=== PATIENT | male | born 1995 | race Caucasian/White ===

== ENCOUNTER 2017-10-23 08:59 | Emergency (ER) | payer OTHER ==
[~2017-10-23] VITALS: Ht 177.8 cm; Wt 77.1 kg
[2017-10-23 09:07] VITALS: BP 108/61
--- NOTE | 2017-10-23 09:10 | NUR ---
22m bib self with c/o deep laceration to left posterior ankle; approximately 7cm x 2 cm laceration; Patient states a lift gate from truck fell onto pt's ankle. Patient able to move digits to left foot. Patient denies any numbness or tingling to left foot. Unable to bear any weight left foot, +2 pedal pulse <3 sec cap refill. Bleeding controlled. Pt is aox4. gcs=15. Awaiting er md cavanaugh. Vss. Will continue to monitor.
[2017-10-23] MEDS ORDERED: NACL 0.9% 500 ML IV SCH (09:14)
[2017-10-23] MEDS ORDERED: MORPHINE SULFATE 4 MG/ML SYR IVP ONE (09:15)
[2017-10-23] MEDS ORDERED: ceFAZolin 1,000 MG in DEXT 5% MINI-BAG PLUS 50 ML IV ONE (09:15)
[2017-10-23] MEDS ORDERED: ONDANSETRON 4 MG/2 ML VIAL IVP ONE (09:15)
--- NOTE | 2017-10-23 09:22 | NUR ---
xray by bedside
[2017-10-23] MEDS ORDERED: NEOMYCIN/POLYMYXIN/BACITRACIN 0.9 GM/1 PKT TP ONE (09:25)
[2017-10-23] MEDS ORDERED: LIDOCAINE 1% 500 MG/50 ML VIAL INJ ONE (09:25)
[2017-10-23] MEDS ORDERED: ceFAZolin 1,000 MG VIAL ONE (09:35)
[2017-10-23] MEDS ORDERED: LIDOCAINE MPF 1% - **ER/OR** 10 ML ONE (09:38)
--- NOTE | 2017-10-23 09:55 | NUR ---
Dr. Moreno evaluating patient at bedside.
--- NOTE | 2017-10-23 10:44 | NUR ---
iv antibiotics infusing without difficutly. family by bedside. vss. pain at a comfortable level. will continue to monitor.
[2017-10-23] MEDS ORDERED: LIDOCAINE MPF 1% - **ER/OR** 15 ML ONE (11:05)
--- NOTE | 2017-10-23 11:34 | NUR ---
awaiting laceration repair. suture set up, lidocaine, and supplies by bedside. er md hamilton aware.
--- NOTE | 2017-10-23 12:15 | NUR ---
per md hamilton by bedside suturing patient. patient tolerating well.
--- NOTE | 2017-10-23 12:48 | NUR ---
Patient taken to CT scan via wheelchair by tech.
--- NOTE | 2017-10-23 12:59 | NUR ---
pt returned from ct via gurney and returned to [facility]7 without incidient. awaiting ct result. will continue to monitor.
--- NOTE | 2017-10-23 13:46 | NUR ---
Crutches dispensed. Taught proper use, patient returned demo.
--- NOTE | 2017-10-23 14:02 | NUR ---
Patient discharged with v/s stable. Written and verbal after care instructions given and explained. Patient alert, oriented and verbalized understanding of instructions. Ambulatory with steady gait. All questions addressed prior to discharge. ID band removed. Patient advised to follow up with PMD. Rx of Ibuprofen, Keflex, and Bacitracin given. Patient educated on indication of medication including possible reaction and side effects. Opportunity to ask questions provided and answered.
[2017-10-23 14:04] VITALS: BP 104/60
== END 2017-10-23 14:02 | disposition home or self-care (01) ==
LOC: MED 08:59
DX: S91.012A Laceration without foreign body, left ankle, initial encounter (principal); W20.8XXA Other cause of strike by thrown, projected or falling object, initial encounter; Y93.89 Activity, other specified; Y99.8 Other external cause status; Y92.89 Other specified places as the place of occurrence of the external cause
CPT/HCPCS: 12004; 73610; 73700; 96365; 96375; 99284; J0690; J2001; J2270; J2405; J7030; Q0092

== ENCOUNTER 2017-11-16 20:53 | Emergency (ER) | payer OTHER ==
[~2017-11-16] VITALS: Ht 185.4 cm; Wt 77.1 kg
[2017-11-16 20:55] VITALS: BP 128/85
[2017-11-16] MEDS ORDERED: BACITRACIN OINT 500 UNITS/GM PKT TP ONE (21:16)
[2017-11-16 21:26] VITALS: BP 125/85
== END 2017-11-16 21:32 | disposition home or self-care (01) ==
LOC: MED 20:53
DX: S91.012D Laceration without foreign body, left ankle, subsequent encounter (principal); L98.499 Non-pressure chronic ulcer of skin of other sites with unspecified severity; X58.XXXD Exposure to other specified factors, subsequent encounter
CPT/HCPCS: 99283

== ENCOUNTER 2017-11-24 10:49 | Emergency (ER) | payer OTHER ==
[~2017-11-24] VITALS: Ht 185.4 cm; Wt 76.2 kg
[2017-11-24 11:07] VITALS: BP 119/62
--- NOTE | 2017-11-24 11:44 | NUR ---
PT AMBULATES TO BED 8
--- NOTE | 2017-11-24 11:50 | NUR ---
22 YO M TO ER with c/o recheck for wound. Suture removal to left lower leg on 11/16/17. Instructed to back within a week for recheck. No discharge noted but patient reports of pus discharge. hx--patient denies rx--patient denies
--- NOTE | 2017-11-24 11:58 | NUR ---
Patient being evaluated by physician at bedside.
[2017-11-24 12:11] VITALS: BP 119/62
--- NOTE | 2017-11-24 12:11 | NUR ---
Patient discharged with v/s stable. Written and verbal after care instructions given and explained. Patient verbalized understanding. Ambulatory with steady gait. All questions addressed prior to discharge. Advised to follow up with PMD.
--- NOTE | 2017-11-24 12:11 | NUR ---
LARGE BANDAID APPLIED TO HEALING WOUND
== END 2017-11-24 12:11 | disposition home or self-care (01) ==
LOC: MED 10:49
DX: Z48.01 Encounter for change or removal of surgical wound dressing (principal)
CPT/HCPCS: 99281; 99282

== ENCOUNTER 2017-12-15 08:48 | Emergency (ER) | payer OTHER ==
[~2017-12-15] VITALS: Ht 185.4 cm; Wt 77.7 kg
[2017-12-15 08:51] VITALS: BP 140/82
--- NOTE | 2017-12-15 08:57 | NUR ---
PT AMBULATES TO BED 2, REPORT GIVEN TO LEIF SANCHEZ
--- NOTE | 2017-12-15 09:08 | NUR ---
PT. CAME INTO THE ED DUE TO A RECHECK FOR WOUND ON LT HEEL S/P LACERATION ON 10/25; RECHECKED TWICED ON 11/16 AND 11/24; OPEN WOUND WITH ERYTHEMA AND PAIN 4/10 WORSE ON AMBULATION. RR EVEN AND UNLABORED. PT. DENIES ANY FEVER OR DRAINAGE FROM L HEEL. ER MD NOTIFIED. WILL CONTINUE TO MONITOR/
[2017-12-15 09:16] VITALS: BP 138/80
== END 2017-12-15 09:16 | disposition home or self-care (01) ==
LOC: MED 08:48
DX: S91.012D Laceration without foreign body, left ankle, subsequent encounter (principal); X58.XXXD Exposure to other specified factors, subsequent encounter; R03.0 Elevated blood-pressure reading, without diagnosis of hypertension
CPT/HCPCS: 99283

== ENCOUNTER 2023-11-30 01:13 | Emergency (ER) | payer OTHER ==
[~2023-11-30] VITALS: Ht 182.9 cm; Wt 100.7 kg
[2023-11-30 01:16] VITALS: BP 140/89; PULSE 78; RESP 16; TEMP 97.7; O2SAT 100
[2023-11-30 01:29] VITALS: O2SAT 98
[2023-11-30] MEDS: ALUMINUM HYD/MAG/SIMETHICONE 30 ML UDC PO ONE (02:22)
[2023-11-30] MEDS: FAMOTIDINE 20 MG TAB PO ONE (02:25)
[2023-11-30] MEDS: ONDANSETRON 4 MG ODT PO ONE (02:25)
[2023-11-30] MEDS ORDERED: ONDA-188 PO (02:51)
[2023-11-30] MEDS ORDERED: MAG-27 PO (02:51)
[2023-11-30] MEDS ORDERED: FAMO-92 PO (02:51)
[2023-11-30 03:18] VITALS: BP 109/70; PULSE 69; RESP 17; TEMP 98.1; O2SAT 99
== END 2023-11-30 03:18 | disposition home or self-care (01) ==
LOC: MED 01:13
DX: K21.9 Gastro-esophageal reflux disease without esophagitis (principal); F17.200 Nicotine dependence, unspecified, uncomplicated
CPT/HCPCS: 99284; Q0162